=== PATIENT | male | born 1960 | race Two or more races ===

== ENCOUNTER 2017-01-21 03:10 | Inpatient (IN) | payer MEDICARE, OTHER ==
[2017-01-21] MEDS ORDERED: cefTRIAXone 1 GM in Sodium Chloride 0.9% 50 ML IV ONE (04:15)
[2017-01-21 04:18] VITALS: BP 136/81
--- NOTE | 2017-01-21 09:14 | History and Physical ---
History of Present Illness - HPI Chief Complaint: Fever and body pain HPI: Patient refer that x 3 days he has having fever, shaking, felling tired, reazon why he went to ER [facility]. There an CXR was done and Dx of Pneumonia was done. He was transferred to this hospital to continue treatment. Vital Signs: Last Vital Signs Temp 99.7 F 01/21/17 08:00 Pulse 79 01/21/17 08:00 Resp 148 01/21/17 08:00 BP 177/82 01/21/17 08:00 Pulse Ox 100 01/21/17 08:00 Past Medical History Cardiovascular: Report: HTN Pulmonary: Report: No Pertinent Hx GLASS BENDER: Report: No Pertinent Hx GI: Report: No Pertinent Hx Psych: Report: No Pertinent Hx Musculoskeletal: Report: No Pertinent Hx Infectious Disease: Report: No Pertinent Hx Renal/: Report: Chronic Renal Insuff, Other (Patient in HD 3 times a week) Endocrine: Report: Diabetes Dermatology: Report: No Pertinent Hx - Past Surgical History Past Surgical History: No pertinent Hx Family Medical History - Family Member Mother Ethnicity: Living Status: Still Living Hx Family Hypertension: Yes Social History Smoke: No Alcohol: None Drugs: None Lives: With Family Domestic Violence: Negative Health Maintenance Health Maintenance: Cholesterol - Allergies Allergies/Adverse Reactions: Allergies Allergy/AdvReac Type Severity Reaction Status Date / Time No Known Allergies Allergy Verified 01/21/17 04:05 Review of Systems - Review of Systems Constitutional: Report: Fever, Chills, Sweats, Weakness Eyes: Report: No Significant ENT: Report: No Significant Respiratory: Report: Cough, Dry Cardiovascular: Report: No Significant Gastrointestinal: Report: No Significant Genitourinary: Report: No Significant Musculoskeletal: Report: No Significant Skin: Report: No Significant Neurological: Report: Weakness Physical Exam - Physical Exam HEENT: Report: Ears Nose Throat within normal limits Neck: Report: Within normal limits Cardiovascular Systems: Report: Regular, Rate and Rhythm Respiratory: Report: Rhonchi Abdomen: Report: Non-tender to palpation Back: Report: Inspection of back is within normal limits. Extremities: Report: Non-tender to palpation. Skin: Report: Warm, Dry Neuro/Psych: Report: No motor deficit - Assessment Assessment: Patient is awake, alert, calm, shaking. Patient refer body pain and fever. According to information received from [facility] CXR showed PNA. - Plan Plan: Patient in ceftriaxone, Labs and CXR are requested, consult with nephro done. family Patient stated that they going to give us the meds patient is taking, no information at this moment.
[2017-01-21 09:45] LABS: % BASOPHILS 0.6 % (0.0-2.0); % EOSINOPHILS 0.2 % (0.0-5.0); % LYMPHOCYTES 6.7 % (20.0-50.0); % MONOCYTES 9.2 % (2.0-10.0); % NEUTROPHILS 83.3 % (40.0-80.0); HEMATOCRIT 34.8 % (39.0-49.0); HEMOGLOBIN 11.8 gm/dL (13.2-17.3); MEAN CELL VOLUME 95.9 fl (80-99); MEAN CORPUSCULAR HEMOGLOBIN 32.5 pg (26.0-30.0); MEAN CORPUSCULAR HGB CONC 33.9 pg (28.0-36.0); MEAN PLATELET VOLUME 8.7 fl; NEUTROPHILE ABSOLUTE 4.4 Th/cmm (1.8-8.0); PLATELET COUNT 120 Th/cmm (150-400); RED BLOOD COUNT 3.63 Mil/cmm (4.30-5.70); RED CELL DISTRIBUTION WIDTH 14.3 % (11.5-20.0); WHITE BLOOD COUNT 5.3 Th/cmm (4.8-10.8)
[2017-01-21 09:57] LABS: ALB/GLOB RATIO 1.4 (1.0-1.8); ANION GAP 12.9 (7.0-16.0); BILIRUBIN,TOTAL 0.5 mg/dL (0.3-1.0); CALCIUM SERUM 9.1 mg/dL (8.6-10.3); CARBON DIOXIDE 26.5 mEq/L (21.0-31.0); POTASSIUM SERUM 5.4 mEq/L (3.5-5.1)
[2017-01-21 10:14] LABS: CREATININE - SERUM 8.5 mg/dL (0.7-1.3)
--- NOTE | 2017-01-21 10:55 | Diagnostic Imaging Report ---
Portable chest x-ray History: Cough Allowing for portable technique the heart size is normal. Atherosclerotic calcification seen within the aortic arch. No focal pulmonary parenchymal processes. No hilar or mediastinal abnormalities. Degenerative changes seen to the spine. Impression: 1. No acute abnormalities 2. Atherosclerotic vascular changes
--- NOTE | 2017-01-21 13:59 | Consultation ---
Consult Note - Consult Note Service Date: 01/21/17 Consult Note: PHYSICIAN Consultation Note: Date of Admission: 01/21/17 Purpose of Consultation: Management of hemodialysis Chief Complaint: Fever/chills History of Present Illness: 56-year-old male with past medical history end-stage renal disease on hemodialysis was transferred from [place] emergency room to [facility] for further management. 2 days prior to admission, patient developed fever/chills. This was associated with nausea and vomiting, generalized myalgias and occasional cough. A few hours prior to admission, patient continued to have chills and myalgias during his dialysis treatment. Thus he proceeded to [place] emergency room. Temperature @ the emergency room was 102. WBC was 9.9 and potassium of 5.7. He received 10 U regular insulin with 1 amp of D50. Chest x-ray still pending. He was then transferred to [facility] for further care and antibiotics. Past medical history: ESRD on hemodialysis Essential hypertension with CKD Type 2 diabetes mellitus Diagnoses TYPE 2 DIABETES MELLITUS WITHOUT COMPLICATIONS (01/21/17) HYP CHR KIDNEY DISEASE W STAGE 5 CHR KIDNEY DISEASE OR ESRD (01/21/17) PNEUMONIA, UNSPECIFIED ORGANISM (01/21/17) END STAGE RENAL DISEASE (01/21/17) FEVER, UNSPECIFIED (01/21/17) DEPENDENCE ON RENAL DIALYSIS (01/21/17) Allergies Allergy/AdvReac Type Severity Reaction Status Date / Time No Known Allergies Allergy Verified 01/21/17 04:05 Vital Signs Temp 99.1 F 01/21/17 11:59 Pulse 76 01/21/17 11:59 Resp 18 01/21/17 12:00 BP 136/78 01/21/17 11:59 Pulse Ox 99 01/21/17 11:59 Intake & Output 01/20/17 01/21/17 01/21/17 18:59 06:59 18:59 Weight (lbs) 80.739 kg Other: Stool Characteristics Soft Soft Laboratory Results - last 24 hr 01/21/17 01/21/17 09:30 09:30 WBC 5.3 RBC 3.63 L Hgb 11.8 L Hct 34.8 L MCV 95.9 MCH 32.5 H MCHC Differential 33.9 RDW 14.3 Plt Count 120 L MPV 8.7 Neutrophils % 83.3 H Lymphocytes % 6.7 L Monocytes % 9.2 Eosinophils % 0.2 Basophils % 0.6 Sodium 132 L Potassium 5.4 H Chloride 98 Carbon Dioxide 26.5 Anion Gap 12.9 BUN 51 H Creatinine 8.5 H* Est GFR ( Amer) 8.5 Est GFR (Non-Af Amer) 7.0 BUN/Creatinine Ratio 6.0 Glucose 178 H Calcium 9.1 Total Bilirubin 0.5 AST 27 ALT 30 Alkaline Phosphatase 56 Total Protein 6.7 Albumin 3.9 L Globulin 2.8 Albumin/Globulin Ratio 1.4 Home Medication Medication Instructions Recorded Type Aspirin [Aspirin Chewable] 81 mg PO DAILY 01/21/17 History Atorvastatin Calcium [Lipitor] 40 mg PO DAILY 01/21/17 History Calcium Acetate [Phoslo] 2,708 mg PO TID 01/21/17 History Carvedilol [Coreg] 25 mg PO BID 01/21/17 History Diphenoxylate HCl/Atropine 1 tab PO PRN PRN 01/21/17 History [Diphenoxylate-Atrop 2.5-0.025] Finasteride [Proscar] 5 mg PO DAILY 01/21/17 History Furosemide [Lasix] 80 mg PO DAILY 01/21/17 History Gabapentin [Neurontin*] 300 mg PO DAILY 01/21/17 History Glimepiride 1 mg PO DAILY 01/21/17 History Hydralazine [Apresoline*] 50 mg PO TID 01/21/17 History Vit B Cmplx 3/FA/Vit C/Biotin 1 tab PO DAILY 01/21/17 History [Molly-Janet Rx Tablet] Current Medications Generic Name Dose Route Start Last Admin Trade Name Jeanq PRN Reason Stop Dose Admin Acetaminophen 650 mg 01/21/17 09:04 01/21/17 09:37 Tylenol PO 03/22/17 09:03 650 mg Q6H PRN Administration Pain or Fever >101 Amlodipine Besylate 5 mg 01/21/17 09:30 01/21/17 09:37 Norvasc PO 03/22/17 09:29 5 mg DAILY [facility] Administration Ceftriaxone Sodium 1 gm/ 50 mls @ 100 mls/hr 01/22/17 09:00 Sodium Chloride IV 03/23/17 08:59 Q24HR E[facility] Ondansetron HCl 4 mg 01/21/17 04:16 Zofran IV 03/22/17 04:15 Q6H PRN Nausea / Vomiting Tramadol HCl 50 mg 01/21/17 11:13 Ultram PO 03/22/17 11:12 Q6HR PRN GENERALIZED PAIN Review of Systems: A 12 point ROS was reviewed with the pertinent positive and negatives noted in the HPI. Social History Smoking Status Never smoker Family Medical History Family Medical History Start: 01/21/17 04: 01 Freq: ONCE Status: Active Document 01/21/17 04:01 LSUN (Rec: 01/21/17 06:08 [id number] [id number]) Family Medical History Mother Ethnicity Living Status Still Living Hx Family Hypertension Yes Physical Exam: General: Alert and Oriented x3, chills HEENT: EOMI Bilaterally, PERRLA Bilaterally, Head is normocephalic, atraumatic on inspection. Cardio: +S1/S2 Auscultated, RRR, no murmurs/rubs/gallops noted Respiratory: few rhonchi Abdominal: Soft, Nondistended, Nontender to palpation x 4 quadrants Genital/Urinary: WNL Extremities: No Edema noted in the lower extremities; right AVF clean, no signs of infection Neurological: Cranial Nerves II-XII intact bilaterally, No Focal Deficits noted. Assessment/Plan: Fever/chills secondary to community-acquired pneumonia, right AV fistula infection which I doubt Essential hypertension with CAD Type 2 diabetes mellitus with CKD ESRD on hemodialysis Plan: Hemodialysis in a.m. Follow-up cultures Follow-up electrolytes Vancomycin 1 Antipyretics Romel, Pantera Lee [id number]
[2017-01-22 05:50] LABS: HEMATOCRIT 32.7 % (39.0-49.0); HEMOGLOBIN 11.3 gm/dL (13.2-17.3); MEAN CELL VOLUME 94.9 fl (80-99); MEAN CORPUSCULAR HEMOGLOBIN 32.9 pg (26.0-30.0); MEAN CORPUSCULAR HGB CONC 34.7 pg (28.0-36.0); MEAN PLATELET VOLUME 9.1 fl; PLATELET COUNT 120 Th/cmm (150-400); RED BLOOD COUNT 3.45 Mil/cmm (4.30-5.70); RED CELL DISTRIBUTION WIDTH 13.9 % (11.5-20.0); WHITE BLOOD COUNT 4.8 Th/cmm (4.8-10.8)
[2017-01-22 06:14] LABS: ALB/GLOB RATIO 1.3 (1.0-1.8); ANION GAP 10.8 (7.0-16.0); BILIRUBIN,TOTAL 0.4 mg/dL (0.3-1.0); BUN/CREATININE RATIO 6.4; CARBON DIOXIDE 27.3 mEq/L (21.0-31.0)
[2017-01-22 06:16] LABS: POTASSIUM SERUM 6.1 mEq/L (3.5-5.1)
[2017-01-22 06:17] LABS: CREATININE - SERUM 10.4 mg/dL (0.7-1.3)
[2017-01-22 06:30] LABS: BAND NEUTROPHILE 3 % (0-10); NEUTROPHILS 68 % (40-80); PLATELET ESTIMATE ADEQUATE (NORMAL); TOTAL CELLS COUNTED 100
--- NOTE | 2017-01-22 09:00 | General Progress Note ---
Subjective - Review of Systems Service Date: 01/22/17 Subjective: I feel better Objective - Results Result Diagrams: 01/22/17 05:35 01/22/17 05:35 Recent Labs: Laboratory Last Values WBC 4.8 Th/cmm (4.8-10.8) 01/22/17 05:35 RBC 3.45 Mil/cmm (4.30-5.70) L 01/22/17 05:35 Hgb 11.3 gm/dL (13.2-17.3) L 01/22/17 05:35 Hct 32.7 % (39.0-49.0) L 01/22/17 05:35 MCV 94.9 fl (80-99) 01/22/17 05:35 MCH 32.9 pg (26.0-30.0) H 01/22/17 05:35 MCHC Differential 34.7 pg (28.0-36.0) 01/22/17 05:35 RDW 13.9 % (11.5-20.0) 01/22/17 05:35 Plt Count 120 Th/cmm (150-400) L 01/22/17 05:35 MPV 9.1 fl 01/22/17 05:35 Neutrophils % 83.3 % (40.0-80.0) H 01/21/17 09:30 Band Neutrophils % 3 % (0-10) 01/22/17 05:35 Lymphocytes % 6.7 % (20.0-50.0) L 01/21/17 09:30 Monocytes % 9.2 % (2.0-10.0) 01/21/17 09:30 Eosinophils % 0.2 % (0.0-5.0) 01/21/17 09:30 Basophils % 0.6 % (0.0-2.0) 01/21/17 09:30 Neutrophils (Manual) 68 % (40-80) 01/22/17 05:35 Lymphocytes 18 % (20-50) L 01/22/17 05:35 Monocytes 11 % (2-10) H 01/22/17 05:35 Platelet Estimate ADEQUATE (NORMAL) 01/22/17 05:35 Sodium 131 mEq/L (136-145) L 01/22/17 05:35 Potassium 6.1 mEq/L (3.5-5.1) H* 01/22/17 05:35 Chloride 99 mEq/L (98-107) 01/22/17 05:35 Carbon Dioxide 27.3 mEq/L (21.0-31.0) 01/22/17 05:35 Anion Gap 10.8 (7.0-16.0) 01/22/17 05:35 BUN 67 mg/dL (7-25) H 01/22/17 05:35 Creatinine 10.4 mg/dL (0.7-1.3) H* 01/22/17 05:35 Est GFR ( Amer) 6.7 ml/min (>90) 01/22/17 05:35 Est GFR (Non-Af Amer) 5.5 ml/min 01/22/17 05:35 BUN/Creatinine Ratio 6.4 01/22/17 05:35 Glucose 127 mg/dL (70-105) H 01/22/17 05:35 POC Glucose 169 MG/DL (70 - 105) H 01/21/17 15:22 Hemoglobin A1c % 4.8 % (4.0-6.0) 01/22/17 05:35 Calcium 9.0 mg/dL (8.6-10.3) 01/22/17 05:35 Total Bilirubin 0.4 mg/dL (0.3-1.0) 01/22/17 05:35 AST 21 U/L (13-39) 01/22/17 05:35 ALT 27 U/L (7-52) 01/22/17 05:35 Alkaline Phosphatase 50 U/L (34-104) 01/22/17 05:35 Total Protein 6.1 gm/dL (6.0-8.3) 01/22/17 05:35 Albumin 3.4 gm/dL (4.2-5.5) L 01/22/17 05:35 Globulin 2.7 gm/dL 01/22/17 05:35 Albumin/Globulin Ratio 1.3 (1.0-1.8) 01/22/17 05:35 - Physical Exam Vitals and I&O: Vital Signs Temp 97.7 F 01/22/17 04:00 Pulse 85 01/22/17 04:00 Resp 20 01/22/17 04:00 BP 106/66 01/22/17 04:00 Pulse Ox 100 01/22/17 04:00 Intake & Output 01/21/17 01/22/17 01/22/17 18:59 06:59 18:59 Weight (lbs) 80.739 kg Other: # Voids 0 # Bowel Movements 0 Stool Characteristics Soft Soft Active Medications: Current Medications Acetaminophen (Tylenol) 650 mg PO Q6H PRN PRN Reason: Pain or Fever >101 Stop: 03/22/17 09:03 Last Admin: 01/21/17 23:20 Dose: 650 mg Aspirin (Aspirin Chewable) 81 mg PO DAILY [facility] Stop: 03/23/17 08:59 Calcium Acetate (Phoslo) 2,708 mg PO TID [facility] Stop: 03/23/17 08:59 Finasteride (Proscar) 5 mg PO DAILY [facility] PRN Reason: Protocol Stop: 03/23/17 08:59 Gabapentin (Neurontin) mg PO DAILY [facility] Stop: 03/23/17 08:59 Hydralazine HCl (Apresoline) mg PO TID [facility] Stop: 03/23/17 08:59 Ceftriaxone Sodium 1 gm/ (Sodium Chloride) 50 mls @ 100 mls/hr IV Q24HR [facility] Stop: 03/23/17 08:59 Insulin Aspart (Novolog Insulin Sliding Scale) 0 units SUBQ ACHS [facility] PRN Reason: Protocol Stop: 03/23/17 11:29 Miscellaneous (Atorvastatin Calcium [Lipitor]) 40 mg PO DAILY [facility] Stop: 03/23/17 08:59 Miscellaneous (Carvedilol [Coreg]) 25 mg PO BID [facility] Stop: 03/23/17 08:59 Miscellaneous (Vit B Cmplx 3/Fa/Vit C/Biotin [Molly-Janet Rx Tablet]) 1 tab PO DAILY [facility] Stop: 03/23/17 08:59 Ondansetron HCl (Zofran) 4 mg IV Q6H PRN PRN Reason: Nausea / Vomiting Stop: 03/22/17 04:15 Tramadol HCl (Ultram) 50 mg PO Q6HR PRN PRN Reason: GENERALIZED PAIN Stop: 03/22/17 11:12 General: Alert, Oriented x3, Cooperative, No acute distress HEENT: Atraumatic Neck: Supple Cardiovascular: Regular rate Lungs: Clear to auscultation Abdomen: Bowel sounds, Soft Extremities: Other (No edema) Neurological: Normal gait Skin: Other (warm and dry) Psych/Mental Status: Mental status NL Assessment/Plan - Assessment Assessment: Patient is awake, alert, calm, shaking. Patient refer felling better. Patient is not shaking anymore, K is high. - Plan Plan: Patient in ceftriaxone, and vanco, HD will be done today Kayaxelate is given. Will continue to monitor.
[2017-01-22] MEDS: cefTRIAXone 1 GM in 0.9% NS 50 ML IV SCH (09:54)
[2017-01-22] MEDS: Vitamin B Complex w/Vitamin C Tab PO SCH (09:57)
[2017-01-22] MEDS: Aspirin 81mg Chewable Tab PO SCH (09:58)
[2017-01-22] MEDS: INSULIN ASPART SLIDING SCALE 100 UNITS/ML UNIT SUBQ SCH ×3 (13:25→21:31)
--- NOTE | 2017-01-22 14:15 | General Progress Note ---
Subjective - Review of Systems Service Date: 01/22/17 Subjective: Alert, slightly anxious Objective - Results Result Diagrams: 01/22/17 05:35 01/22/17 05:35 Recent Labs: Laboratory Last Values WBC 4.8 Th/cmm (4.8-10.8) 01/22/17 05:35 RBC 3.45 Mil/cmm (4.30-5.70) L 01/22/17 05:35 Hgb 11.3 gm/dL (13.2-17.3) L 01/22/17 05:35 Hct 32.7 % (39.0-49.0) L 01/22/17 05:35 MCV 94.9 fl (80-99) 01/22/17 05:35 MCH 32.9 pg (26.0-30.0) H 01/22/17 05:35 MCHC Differential 34.7 pg (28.0-36.0) 01/22/17 05:35 RDW 13.9 % (11.5-20.0) 01/22/17 05:35 Plt Count 120 Th/cmm (150-400) L 01/22/17 05:35 MPV 9.1 fl 01/22/17 05:35 Neutrophils % 83.3 % (40.0-80.0) H 01/21/17 09:30 Band Neutrophils % 3 % (0-10) 01/22/17 05:35 Lymphocytes % 6.7 % (20.0-50.0) L 01/21/17 09:30 Monocytes % 9.2 % (2.0-10.0) 01/21/17 09:30 Eosinophils % 0.2 % (0.0-5.0) 01/21/17 09:30 Basophils % 0.6 % (0.0-2.0) 01/21/17 09:30 Neutrophils (Manual) 68 % (40-80) 01/22/17 05:35 Lymphocytes 18 % (20-50) L 01/22/17 05:35 Monocytes 11 % (2-10) H 01/22/17 05:35 Platelet Estimate ADEQUATE (NORMAL) 01/22/17 05:35 Sodium 131 mEq/L (136-145) L 01/22/17 05:35 Potassium 6.1 mEq/L (3.5-5.1) H* 01/22/17 05:35 Chloride 99 mEq/L (98-107) 01/22/17 05:35 Carbon Dioxide 27.3 mEq/L (21.0-31.0) 01/22/17 05:35 Anion Gap 10.8 (7.0-16.0) 01/22/17 05:35 BUN 67 mg/dL (7-25) H 01/22/17 05:35 Creatinine 10.4 mg/dL (0.7-1.3) H* 01/22/17 05:35 Est GFR ( Amer) 6.7 ml/min (>90) 01/22/17 05:35 Est GFR (Non-Af Amer) 5.5 ml/min 01/22/17 05:35 BUN/Creatinine Ratio 6.4 01/22/17 05:35 Glucose 127 mg/dL (70-105) H 01/22/17 05:35 POC Glucose 152 MG/DL (70 - 105) H 01/22/17 13:04 Hemoglobin A1c % 4.8 % (4.0-6.0) 01/22/17 05:35 Calcium 9.0 mg/dL (8.6-10.3) 01/22/17 05:35 Total Bilirubin 0.4 mg/dL (0.3-1.0) 01/22/17 05:35 AST 21 U/L (13-39) 01/22/17 05:35 ALT 27 U/L (7-52) 01/22/17 05:35 Alkaline Phosphatase 50 U/L (34-104) 01/22/17 05:35 Total Protein 6.1 gm/dL (6.0-8.3) 01/22/17 05:35 Albumin 3.4 gm/dL (4.2-5.5) L 01/22/17 05:35 Globulin 2.7 gm/dL 01/22/17 05:35 Albumin/Globulin Ratio 1.3 (1.0-1.8) 01/22/17 05:35 - Physical Exam Vitals and I&O: Vital Signs Temp 97.7 F 01/22/17 04:00 Pulse 112 01/22/17 09:57 Resp 20 01/22/17 04:00 BP 128/75 01/22/17 09:57 Pulse Ox 100 01/22/17 04:00 Intake & Output 01/21/17 01/22/17 01/22/17 18:59 06:59 18:59 Weight (lbs) 80.739 kg Other: # Voids 0 # Bowel Movements 0 Stool Characteristics Soft Soft Active Medications: Current Medications Acetaminophen (Tylenol) 650 mg PO Q6H PRN PRN Reason: Pain or Fever >101 Stop: 03/22/17 09:03 Last Admin: 01/21/17 23:20 Dose: 650 mg Aspirin (Aspirin Chewable) 81 mg PO DAILY [facility] Stop: 03/23/17 08:59 Last Admin: 01/22/17 09:58 Dose: 81 mg Atorvastatin Calcium (Lipitor) 40 mg PO DAILY [facility] Stop: 03/23/17 08:59 Last Admin: 01/22/17 09:56 Dose: 40 mg Calcium Acetate (Phoslo) 2,668 mg PO TIDWM [facility] Stop: 03/23/17 11:59 Carvedilol (Coreg) 25 mg PO BID [facility] Stop: 03/23/17 08:59 Last Admin: 01/22/17 09:57 Dose: 25 mg Finasteride (Proscar) 5 mg PO DAILY [facility] PRN Reason: Protocol Stop: 03/23/17 08:59 Last Admin: 01/22/17 09:56 Dose: 5 mg Gabapentin (Neurontin) 300 mg PO DAILY [facility] Stop: 03/23/17 08:59 Last Admin: 01/22/17 09:57 Dose: 300 mg Hydralazine HCl (Apresoline) 50 mg PO TID [facility] Stop: 03/23/17 08:59 Ceftriaxone Sodium 1 gm/ (Sodium Chloride) 50 mls @ 100 mls/hr IV Q24HR [facility] Stop: 03/23/17 08:59 Last Admin: 01/22/17 09:54 Dose: 100 mls/hr Insulin Aspart (Novolog Insulin Sliding Scale) 0 units SUBQ ACHS [facility] PRN Reason: Protocol Stop: 03/23/17 11:29 Last Admin: 01/22/17 13:25 Dose: 3 units Ondansetron HCl (Zofran) 4 mg IV Q6H PRN PRN Reason: Nausea / Vomiting Stop: 03/22/17 04:15 Tramadol HCl (Ultram) 50 mg PO Q6HR PRN PRN Reason: GENERALIZED PAIN Stop: 03/22/17 11:12 Vitamin B Complex/Vit C/Folic Acid (Vitamin B Complex W/Vitamin C) 1 tab PO DAILY [facility] Stop: 03/23/17 08:59 Last Admin: 01/22/17 09:57 Dose: 1 tab General: Alert, Oriented x3, Cooperative, No acute distress HEENT: Atraumatic, PERRLA, EOMI, Mucous membr. moist/pink Neck: Supple, +2 carotid pulse wo bruit Cardiovascular: Regular rate, Normal S1, Normal S2 Lungs: Clear to auscultation, Normal air movement Abdomen: Bowel sounds, Soft Extremities: Other (No edema), no Edema Neurological: Normal gait Skin: Other (warm and dry), no Rash Psych/Mental Status: Mental status NL, Mood NL Assessment/Plan - Assessment Assessment: Community acquired pneumonia Essential hypertension COPD Type II DM with CPD ESRD on hemodialysis - Plan Plan: Lab - Result Diagrams 01/22/17 05:35 01/22/17 05:35 Current Medications Acetaminophen (Tylenol) 650 mg PO Q6H PRN PRN Reason: Pain or Fever >101 Stop: 03/22/17 09:03 Last Admin: 01/21/17 23:20 Dose: 650 mg Aspirin (Aspirin Chewable) 81 mg PO DAILY [facility] Stop: 03/23/17 08:59 Last Admin: 01/22/17 09:58 Dose: 81 mg Atorvastatin Calcium (Lipitor) 40 mg PO DAILY [facility] Stop: 03/23/17 08:59 Last Admin: 01/22/17 09:56 Dose: 40 mg Calcium Acetate (Phoslo) 2,668 mg PO TIDWM [facility] Stop: 03/23/17 11:59 Carvedilol (Coreg) 25 mg PO BID [facility] Stop: 03/23/17 08:59 Last Admin: 01/22/17 09:57 Dose: 25 mg Finasteride (Proscar) 5 mg PO DAILY [facility] PRN Reason: Protocol Stop: 03/23/17 08:59 Last Admin: 01/22/17 09:56 Dose: 5 mg Gabapentin (Neurontin) 300 mg PO DAILY [facility] Stop: 03/23/17 08:59 Last Admin: 01/22/17 09:57 Dose: 300 mg Hydralazine HCl (Apresoline) 50 mg PO TID [facility] Stop: 03/23/17 08:59 Ceftriaxone Sodium 1 gm/ (Sodium Chloride) 50 mls @ 100 mls/hr IV Q24HR [facility] Stop: 03/23/17 08:59 Last Admin: 01/22/17 09:54 Dose: 100 mls/hr Insulin Aspart (Novolog Insulin Sliding Scale) 0 units SUBQ ACHS [facility] PRN Reason: Protocol Stop: 03/23/17 11:29 Last Admin: 01/22/17 13:25 Dose: 3 units Ondansetron HCl (Zofran) 4 mg IV Q6H PRN PRN Reason: Nausea / Vomiting Stop: 03/22/17 04:15 Tramadol HCl (Ultram) 50 mg PO Q6HR PRN PRN Reason: GENERALIZED PAIN Stop: 03/22/17 11:12 Vitamin B Complex/Vit C/Folic Acid (Vitamin B Complex W/Vitamin C) 1 tab PO DAILY [facility] Stop: 03/23/17 08:59 Last Admin: 01/22/17 09:57 Dose: 1 tab Currently being dialyzed and tolerating it well Utilizing one K bath for potassium 6.1 Continue ceftriaxone White count stable at 4.8 Follow-up electrolytes
--- NOTE | 2017-01-22 14:40 | Consultation ---
Consult Note - Consult Note Service Date: 01/22/17 Referring Physician: Bandar Booth Consult Note: PHYSICIAN Consultation Note: Date of Admission: 01/21/17 Purpose of Consultation: Shortness of breath Chief Complaint: Shortness of breath feeling weak diarrhea and low-grade fever History of Present Illness: Patient GRETA BEAVERS was admitted to [facility] Telemetry with PNEUMONIA- HYPERKALEMIA. Patient transferred from [facility] Past Medical History: Diagnoses TYPE 2 DIABETES MELLITUS WITHOUT COMPLICATIONS (01/21/17) HYP CHR KIDNEY DISEASE W STAGE 5 CHR KIDNEY DISEASE OR ESRD (01/21/17) PNEUMONIA, UNSPECIFIED ORGANISM (01/21/17) END STAGE RENAL DISEASE (01/21/17) FEVER, UNSPECIFIED (01/21/17) DEPENDENCE ON RENAL DIALYSIS (01/21/17) Allergies Allergy/AdvReac Type Severity Reaction Status Date / Time No Known Allergies Allergy Verified 01/21/17 04:05 Vital Signs Temp 97.7 F 01/22/17 04:00 Pulse 112 01/22/17 09:57 Resp 20 01/22/17 04:00 BP 128/75 01/22/17 09:57 Pulse Ox 100 01/22/17 04:00 Intake & Output 01/21/17 01/22/17 01/22/17 18:59 06:59 18:59 Weight (lbs) 80.739 kg Other: # Voids 0 # Bowel Movements 0 Stool Characteristics Soft Soft Laboratory Results - last 24 hr 01/21/17 01/22/17 01/22/17 15:22 05:35 05:35 WBC 4.8 RBC 3.45 L Hgb 11.3 L Hct 32.7 L MCV 94.9 MCH 32.9 H MCHC Differential 34.7 RDW 13.9 Plt Count 120 L MPV 9.1 Band Neutrophils % 3 Neutrophils (Manual) 68 Lymphocytes 18 L Monocytes 11 H Platelet Estimate ADEQUATE Sodium 131 L Potassium 6.1 H* Chloride 99 Carbon Dioxide 27.3 Anion Gap 10.8 BUN 67 H Creatinine 10.4 H* Est GFR ( Amer) 6.7 Est GFR (Non-Af Amer) 5.5 BUN/Creatinine Ratio 6.4 Glucose 127 H POC Glucose 169 H Hemoglobin A1c % Calcium 9.0 Total Bilirubin 0.4 AST 21 ALT 27 Alkaline Phosphatase 50 Total Protein 6.1 Albumin 3.4 L Globulin 2.7 Albumin/Globulin Ratio 1.3 01/22/17 01/22/17 01/22/17 05:35 08:47 13:04 WBC RBC Hgb Hct MCV MCH MCHC Differential RDW Plt Count MPV Band Neutrophils % Neutrophils (Manual) Lymphocytes Monocytes Platelet Estimate Sodium Potassium Chloride Carbon Dioxide Anion Gap BUN Creatinine Est GFR ( Amer) Est GFR (Non-Af Amer) BUN/Creatinine Ratio Glucose POC Glucose 122 H 152 H Hemoglobin A1c % 4.8 Calcium Total Bilirubin AST ALT Alkaline Phosphatase Total Protein Albumin Globulin Albumin/Globulin Ratio Home Medication Medication Instructions Recorded Type Aspirin [Aspirin Chewable] 81 mg PO DAILY 01/21/17 History Atorvastatin Calcium [Lipitor] 40 mg PO DAILY 01/21/17 History Calcium Acetate [Phoslo] 2,708 mg PO TID 01/21/17 History Carvedilol [Coreg] 25 mg PO BID 01/21/17 History Diphenoxylate HCl/Atropine 1 tab PO PRN PRN 01/21/17 History [Diphenoxylate-Atrop 2.5-0.025] Finasteride [Proscar] 5 mg PO DAILY 01/21/17 History Furosemide [Lasix] 80 mg PO DAILY 01/21/17 History Gabapentin [Neurontin*] 300 mg PO DAILY 01/21/17 History Glimepiride 1 mg PO DAILY 01/21/17 History Hydralazine [Apresoline*] 50 mg PO TID 01/21/17 History Vit B Cmplx 3/FA/Vit C/Biotin 1 tab PO DAILY 01/21/17 History [Molly-Janet Rx Tablet] Current Medications Generic Name Dose Route Start Last Admin Trade Name Jeanq PRN Reason Stop Dose Admin Acetaminophen 650 mg 01/21/17 09:04 01/21/17 23:20 Tylenol PO 03/22/17 09:03 650 mg Q6H PRN Administration Pain or Fever >101 Aspirin 81 mg 01/22/17 09:00 01/22/17 09:58 Aspirin Chewable PO 03/23/17 08:59 81 mg DAILY EDNA Administration Atorvastatin Calcium 40 mg 01/22/17 09:00 01/22/17 09:56 Lipitor PO 03/23/17 08:59 40 mg DAILY EDNA Administration Calcium Acetate 2,668 mg 01/22/17 12:00 Phoslo PO 03/23/17 11:59 TIDWM EDNA Carvedilol 25 mg 01/22/17 09:00 01/22/17 09:57 Coreg PO 03/23/17 08:59 25 mg BID EDNA Administration Finasteride 5 mg 01/22/17 09:00 01/22/17 09:56 Proscar PO 03/23/17 08:59 5 mg DAILY EDNA Administration Protocol Gabapentin 300 mg 01/22/17 09:00 01/22/17 09:57 Neurontin PO 03/23/17 08:59 300 mg DAILY EDNA Administration Hydralazine HCl 50 mg 01/22/17 09:00 Apresoline PO 03/23/17 08:59 TID EDNA Ceftriaxone Sodium 1 gm/ 50 mls @ 100 mls/hr 01/22/17 09:00 01/22/17 09:54 Sodium Chloride IV 03/23/17 08:59 100 mls/hr Q24HR EDNA Administration Insulin Aspart 0 units 01/22/17 11:30 01/22/17 13:25 Novolog Insulin Sliding Scale SUBQ 03/23/17 11:29 3 units ACHS EDNA Administration Protocol Ondansetron HCl 4 mg 01/21/17 04:16 Zofran IV 03/22/17 04:15 Q6H PRN Nausea / Vomiting Tramadol HCl 50 mg 01/21/17 11:13 Ultram PO 03/22/17 11:12 Q6HR PRN GENERALIZED PAIN Vitamin B Complex/Vit C/Folic Acid 1 tab 01/22/17 09:00 01/22/17 09:57 Vitamin B Complex W/Vitamin C PO 03/23/17 08:59 1 tab DAILY EDNA Administration Review of Systems: A 12 point ROS was reviewed with the pertinent positive and negatives noted in the HPI. Social History Smoking Status Never smoker Family Medical History Family Medical History Start: 01/21/17 04: 01 Freq: ONCE Status: Active Document 01/21/17 04:01 LSUN (Rec: 01/21/17 06:08 [id number]) Family Medical History Mother Ethnicity Living Status Still Living Hx Family Hypertension Yes Physical Exam: General: Alert and Oriented x3, No Acute Distress HEENT: EOMI Bilaterally, PERRLA Bilaterally, Head is normocephalic, atraumatic on inspection. Card S1-S2 no S3 soft S4 Respiratory: Occasional wheeze and rales Abdominal: Soft, Nondistended, Nontender to palpation x 4 quadrants Genital/Urinary: Extremities: No Edema noted in the lower extremities Neurological: Cranial Nerves II-XII intact bilaterally, Gait Steady, No Focal Deficits noted. Assessment/Plan: Pneumonia Hypertension Hyperlipidemia Diabetes mellitus type 2 BPH Hyperkalemia And deficiency anemia Diabetes CKD stage V end-stage renal disease on dialysis And deficiency anemia Patient to have dialysis with ultrafiltration get an echocardiogram for left ventricular function continue IV antibiotics Romel, Gustabo Murphy. 01/22/096326
[2017-01-23] MEDS: INSULIN ASPART SLIDING SCALE 100 UNITS/ML UNIT SUBQ SCH ×4 (06:47→21:05)
[2017-01-23 06:50] LABS: HEMATOCRIT 32.5 % (39.0-49.0); HEMOGLOBIN 11.4 gm/dL (13.2-17.3); MEAN CELL VOLUME 94.6 fl (80-99); MEAN CORPUSCULAR HGB CONC 34.9 pg (28.0-36.0); MEAN PLATELET VOLUME 10.2 fl; PLATELET COUNT 139 Th/cmm (150-400); RED BLOOD COUNT 3.44 Mil/cmm (4.30-5.70); RED CELL DISTRIBUTION WIDTH 14.2 % (11.5-20.0); WHITE BLOOD COUNT 4.6 Th/cmm (4.8-10.8)
[2017-01-23 07:19] LABS: ALB/GLOB RATIO 1.1 (1.0-1.8); ANION GAP 11.4 (7.0-16.0); BILIRUBIN,TOTAL 0.4 mg/dL (0.3-1.0); BUN/CREATININE RATIO 5.4; CALCIUM SERUM 8.8 mg/dL (8.6-10.3); CARBON DIOXIDE 31.6 mEq/L (21.0-31.0)
[2017-01-23 07:38] LABS: CREATININE - SERUM 7.9 mg/dL (0.7-1.3)
[2017-01-23 08:31] LABS: BAND NEUTROPHILE 3 % (0-10); EOSINOPHIL 3 % (0-5); NEUTROPHILS 51 % (40-80); TOTAL CELLS COUNTED 100
[2017-01-23 08:32] LABS: PLATELET ESTIMATE ADEQUATE (NORMAL)
[2017-01-23] MEDS: Vitamin B Complex w/Vitamin C Tab PO SCH (12:01)
[2017-01-23] MEDS: Aspirin 81mg Chewable Tab PO SCH (12:02)
--- NOTE | 2017-01-23 13:47 | General Progress Note ---
Subjective - Review of Systems Service Date: 01/23/17 Subjective: I feel better Objective - Results Result Diagrams: 01/23/17 06:08 01/23/17 06:08 Recent Labs: Laboratory Last Values WBC 4.6 Th/cmm (4.8-10.8) L 01/23/17 06:08 RBC 3.44 Mil/cmm (4.30-5.70) L 01/23/17 06:08 Hgb 11.4 gm/dL (13.2-17.3) L 01/23/17 06:08 Hct 32.5 % (39.0-49.0) L 01/23/17 06:08 MCV 94.6 fl (80-99) 01/23/17 06:08 MCH 33.0 pg (26.0-30.0) H 01/23/17 06:08 MCHC Differential 34.9 pg (28.0-36.0) 01/23/17 06:08 RDW 14.2 % (11.5-20.0) 01/23/17 06:08 Plt Count 139 Th/cmm (150-400) L 01/23/17 06:08 MPV 10.2 fl 01/23/17 06:08 Neutrophils % 83.3 % (40.0-80.0) H 01/21/17 09:30 Band Neutrophils % 3 % (0-10) 01/23/17 06:08 Lymphocytes % 6.7 % (20.0-50.0) L 01/21/17 09:30 Monocytes % 9.2 % (2.0-10.0) 01/21/17 09:30 Eosinophils % 0.2 % (0.0-5.0) 01/21/17 09:30 Basophils % 0.6 % (0.0-2.0) 01/21/17 09:30 Neutrophils (Manual) 51 % (40-80) 01/23/17 06:08 Lymphocytes 24 % (20-50) 01/23/17 06:08 Monocytes 19 % (2-10) H 01/23/17 06:08 Eosinophils 3 % (0-5) 01/23/17 06:08 Platelet Estimate ADEQUATE (NORMAL) 01/23/17 06:08 Sodium 136 mEq/L (136-145) 01/23/17 06:08 Potassium 4.0 mEq/L (3.5-5.1) D 01/23/17 06:08 Chloride 97 mEq/L (98-107) L 01/23/17 06:08 Carbon Dioxide 31.6 mEq/L (21.0-31.0) H 01/23/17 06:08 Anion Gap 11.4 (7.0-16.0) 01/23/17 06:08 BUN 43 mg/dL (7-25) H 01/23/17 06:08 Creatinine 7.9 mg/dL (0.7-1.3) H* 01/23/17 06:08 Est GFR ( Amer) 9.2 ml/min (>90) 01/23/17 06:08 Est GFR (Non-Af Amer) 7.6 ml/min 01/23/17 06:08 BUN/Creatinine Ratio 5.4 01/23/17 06:08 Glucose 102 mg/dL (70-105) 01/23/17 06:08 POC Glucose 130 MG/DL (70 - 105) H 01/23/17 12:14 Hemoglobin A1c % 4.8 % (4.0-6.0) 01/22/17 05:35 Calcium 8.8 mg/dL (8.6-10.3) 01/23/17 06:08 Total Bilirubin 0.4 mg/dL (0.3-1.0) 01/23/17 06:08 AST 17 U/L (13-39) 01/23/17 06:08 ALT 23 U/L (7-52) 01/23/17 06:08 Alkaline Phosphatase 60 U/L (34-104) 01/23/17 06:08 B-Natriuretic Peptide 1040.0 pg/mL (5.0-100.0) H 01/23/17 06:08 Total Protein 6.2 gm/dL (6.0-8.3) 01/23/17 06:08 Albumin 3.3 gm/dL (4.2-5.5) L 01/23/17 06:08 Globulin 2.9 gm/dL 01/23/17 06:08 Albumin/Globulin Ratio 1.1 (1.0-1.8) 01/23/17 06:08 - Physical Exam Vitals and I&O: Vital Signs Temp 98 F 01/23/17 04:00 Pulse 96 01/23/17 12:04 Resp 18 01/23/17 04:00 BP 148/85 01/23/17 12:04 Pulse Ox 94 01/23/17 04:00 Intake & Output 01/22/17 01/23/17 01/23/17 18:59 06:59 18:59 Intake Total 400 200 Output Total 1999 Balance -1600 200 Weight (lbs) 77.111 kg 81.647 kg Intake: Oral 400 200 Output: Hemodialysis 2000 Other: # Voids 2 # Bowel Movements 1 Active Medications: Current Medications Acetaminophen (Tylenol) 650 mg PO Q6H PRN PRN Reason: Pain or Fever >101 Stop: 03/22/17 09:03 Last Admin: 01/21/17 23:20 Dose: 650 mg Aspirin (Aspirin Chewable) 81 mg PO DAILY [facility] Stop: 03/23/17 08:59 Last Admin: 01/23/17 12:02 Dose: 81 mg Atorvastatin Calcium (Lipitor) 40 mg PO DAILY [facility] Stop: 03/23/17 08:59 Last Admin: 01/23/17 12:01 Dose: 40 mg Calcium Acetate (Phoslo) 2,668 mg PO TIDWM [facility] Stop: 03/23/17 11:59 Last Admin: 01/23/17 11:59 Dose: 2,668 mg Carvedilol (Coreg) 25 mg PO BID [facility] Stop: 03/23/17 08:59 Last Admin: 01/23/17 12:04 Dose: 25 mg Finasteride (Proscar) 5 mg PO DAILY [facility] PRN Reason: Protocol Stop: 03/23/17 08:59 Last Admin: 01/23/17 12:00 Dose: 5 mg Gabapentin (Neurontin) 300 mg PO DAILY [facility] Stop: 03/23/17 08:59 Last Admin: 01/22/17 09:57 Dose: 300 mg Hydralazine HCl (Apresoline) 50 mg PO TID [facility] Stop: 03/23/17 08:59 Last Admin: 01/23/17 12:02 Dose: 50 mg Ceftriaxone Sodium 1 gm/ (Sodium Chloride) 50 mls @ 100 mls/hr IV Q24HR [facility] Stop: 03/23/17 08:59 Last Admin: 01/22/17 09:54 Dose: 100 mls/hr Insulin Aspart (Novolog Insulin Sliding Scale) 0 units SUBQ ACHS EDNA PRN Reason: Protocol Stop: 03/23/17 11:29 Last Admin: 01/23/17 12:16 Dose: Not Given Ondansetron HCl (Zofran) 4 mg IV Q6H PRN PRN Reason: Nausea / Vomiting Stop: 03/22/17 04:15 Tramadol HCl (Ultram) 50 mg PO Q6HR PRN PRN Reason: GENERALIZED PAIN Stop: 03/22/17 11:12 Vitamin B Complex/Vit C/Folic Acid (Vitamin B Complex W/Vitamin C) 1 tab PO DAILY [facility] Stop: 03/23/17 08:59 Last Admin: 01/23/17 12:01 Dose: 1 tab General: Alert, Oriented x3, Cooperative, No acute distress HEENT: Atraumatic, PERRLA, EOMI, Mucous membr. moist/pink Neck: Supple, +2 carotid pulse wo bruit Cardiovascular: Regular rate, Normal S1, Normal S2 Lungs: Clear to auscultation, Normal air movement Abdomen: Bowel sounds, Soft Extremities: Other (No edema), no Edema Neurological: Normal gait Skin: Other (warm and dry), no Rash Psych/Mental Status: Mental status NL, Mood NL Assessment/Plan - Assessment Assessment: Patient is awake, alert, calm. Patient refer felling better. Patient is not shaking anymore, K is normal - Plan Plan: Patient in ceftriaxone, HD done yesterday. Will continue to monitor.
[2017-01-23] MEDS: cefTRIAXone 1 GM in 0.9% NS 50 ML IV SCH (15:28)
--- NOTE | 2017-01-23 18:22 | General Progress Note ---
Subjective - Review of Systems Service Date: 01/23/17 Subjective: Alert, better Objective - Results Result Diagrams: 01/23/17 06:08 01/23/17 06:08 Recent Labs: Laboratory Last Values WBC 4.6 Th/cmm (4.8-10.8) L 01/23/17 06:08 RBC 3.44 Mil/cmm (4.30-5.70) L 01/23/17 06:08 Hgb 11.4 gm/dL (13.2-17.3) L 01/23/17 06:08 Hct 32.5 % (39.0-49.0) L 01/23/17 06:08 MCV 94.6 fl (80-99) 01/23/17 06:08 MCH 33.0 pg (26.0-30.0) H 01/23/17 06:08 MCHC Differential 34.9 pg (28.0-36.0) 01/23/17 06:08 RDW 14.2 % (11.5-20.0) 01/23/17 06:08 Plt Count 139 Th/cmm (150-400) L 01/23/17 06:08 MPV 10.2 fl 01/23/17 06:08 Neutrophils % 83.3 % (40.0-80.0) H 01/21/17 09:30 Band Neutrophils % 3 % (0-10) 01/23/17 06:08 Lymphocytes % 6.7 % (20.0-50.0) L 01/21/17 09:30 Monocytes % 9.2 % (2.0-10.0) 01/21/17 09:30 Eosinophils % 0.2 % (0.0-5.0) 01/21/17 09:30 Basophils % 0.6 % (0.0-2.0) 01/21/17 09:30 Neutrophils (Manual) 51 % (40-80) 01/23/17 06:08 Lymphocytes 24 % (20-50) 01/23/17 06:08 Monocytes 19 % (2-10) H 01/23/17 06:08 Eosinophils 3 % (0-5) 01/23/17 06:08 Platelet Estimate ADEQUATE (NORMAL) 01/23/17 06:08 Sodium 136 mEq/L (136-145) 01/23/17 06:08 Potassium 4.0 mEq/L (3.5-5.1) D 01/23/17 06:08 Chloride 97 mEq/L (98-107) L 01/23/17 06:08 Carbon Dioxide 31.6 mEq/L (21.0-31.0) H 01/23/17 06:08 Anion Gap 11.4 (7.0-16.0) 01/23/17 06:08 BUN 43 mg/dL (7-25) H 01/23/17 06:08 Creatinine 7.9 mg/dL (0.7-1.3) H* 01/23/17 06:08 Est GFR ( Amer) 9.2 ml/min (>90) 01/23/17 06:08 Est GFR (Non-Af Amer) 7.6 ml/min 01/23/17 06:08 BUN/Creatinine Ratio 5.4 01/23/17 06:08 Glucose 102 mg/dL (70-105) 01/23/17 06:08 POC Glucose 139 MG/DL (70 - 105) H 01/23/17 16:46 Hemoglobin A1c % 4.8 % (4.0-6.0) 01/22/17 05:35 Calcium 8.8 mg/dL (8.6-10.3) 01/23/17 06:08 Total Bilirubin 0.4 mg/dL (0.3-1.0) 01/23/17 06:08 AST 17 U/L (13-39) 01/23/17 06:08 ALT 23 U/L (7-52) 01/23/17 06:08 Alkaline Phosphatase 60 U/L (34-104) 01/23/17 06:08 B-Natriuretic Peptide 1040.0 pg/mL (5.0-100.0) H 01/23/17 06:08 Total Protein 6.2 gm/dL (6.0-8.3) 01/23/17 06:08 Albumin 3.3 gm/dL (4.2-5.5) L 01/23/17 06:08 Globulin 2.9 gm/dL 01/23/17 06:08 Albumin/Globulin Ratio 1.1 (1.0-1.8) 01/23/17 06:08 - Physical Exam Vitals and I&O: Vital Signs Temp 98 F 01/23/17 04:00 Pulse 90 01/23/17 17:49 Resp 18 01/23/17 04:00 BP 116/63 01/23/17 17:49 Pulse Ox 94 01/23/17 04:00 Intake & Output 01/22/17 01/23/17 01/23/17 18:59 06:59 18:59 Intake Total 450 200 Output Total 2000 Balance -1550 200 Weight (lbs) 77.111 kg 81.647 kg Intake: Intake, IV Amount 50 [id number] 1 gm In 50 Sodium Chloride 0.9% 50 ml @ 100 mls/hr IV Q24HR [facility] Rx#:[id number] Oral 400 200 Output: Hemodialysis 2000 Other: # Voids 2 # Bowel Movements 1 Active Medications: Current Medications Acetaminophen (Tylenol) 650 mg PO Q6H PRN PRN Reason: Pain or Fever >101 Stop: 03/22/17 09:03 Last Admin: 01/21/17 23:20 Dose: 650 mg Aspirin (Aspirin Chewable) 81 mg PO DAILY [facility] Stop: 03/23/17 08:59 Last Admin: 01/23/17 12:02 Dose: 81 mg Atorvastatin Calcium (Lipitor) 40 mg PO DAILY [facility] Stop: 03/23/17 08:59 Last Admin: 01/23/17 12:01 Dose: 40 mg Calcium Acetate (Phoslo) 2,668 mg PO TIDWM [facility] Stop: 03/23/17 11:59 Last Admin: 01/23/17 11:59 Dose: 2,668 mg Carvedilol (Coreg) 25 mg PO BID [facility] Stop: 03/23/17 08:59 Last Admin: 01/23/17 17:49 Dose: 25 mg Finasteride (Proscar) 5 mg PO DAILY [facility] PRN Reason: Protocol Stop: 03/23/17 08:59 Last Admin: 01/23/17 12:00 Dose: 5 mg Gabapentin (Neurontin) 300 mg PO DAILY [facility] Stop: 03/23/17 08:59 Last Admin: 01/23/17 16:59 Dose: 300 mg Hydralazine HCl (Apresoline) 50 mg PO TID [facility] Stop: 03/23/17 08:59 Last Admin: 01/23/17 16:57 Dose: Not Given Ceftriaxone Sodium 1 gm/ (Sodium Chloride) 50 mls @ 100 mls/hr IV Q24HR [facility] Stop: 03/23/17 08:59 Last Admin: 01/23/17 15:28 Dose: 100 mls/hr Insulin Aspart (Novolog Insulin Sliding Scale) 0 units SUBQ ACHS [facility] PRN Reason: Protocol Stop: 03/23/17 11:29 Last Admin: 01/23/17 16:59 Dose: Not Given Ondansetron HCl (Zofran) 4 mg IV Q6H PRN PRN Reason: Nausea / Vomiting Stop: 03/22/17 04:15 Tramadol HCl (Ultram) 50 mg PO Q6HR PRN PRN Reason: GENERALIZED PAIN Stop: 03/22/17 11:12 Vitamin B Complex/Vit C/Folic Acid (Vitamin B Complex W/Vitamin C) 1 tab PO DAILY [facility] Stop: 03/23/17 08:59 Last Admin: 01/23/17 12:01 Dose: 1 tab General: Alert, Oriented x3, Cooperative, No acute distress HEENT: Atraumatic, PERRLA, EOMI, Mucous membr. moist/pink Neck: Supple, +2 carotid pulse wo bruit Cardiovascular: Regular rate, Normal S1, Normal S2 Lungs: Clear to auscultation, Normal air movement Abdomen: Bowel sounds, Soft Extremities: Other (No edema), no Edema Neurological: Normal gait Skin: Other (warm and dry), no Rash Psych/Mental Status: Mental status NL, Mood NL Assessment/Plan - Assessment Assessment: Community acquired pneumonia Essential hypertension COPD Type II DM with CPD ESRD on hemodialysis - Plan Plan: Lab - Result Diagrams 01/22/17 05:35 01/22/17 05:35 Current Medications Acetaminophen (Tylenol) 650 mg PO Q6H PRN PRN Reason: Pain or Fever >101 Stop: 03/22/17 09:03 Last Admin: 01/21/17 23:20 Dose: 650 mg Aspirin (Aspirin Chewable) 81 mg PO DAILY [facility] Stop: 03/23/17 08:59 Last Admin: 01/22/17 09:58 Dose: 81 mg Atorvastatin Calcium (Lipitor) 40 mg PO DAILY [facility] Stop: 03/23/17 08:59 Last Admin: 01/22/17 09:56 Dose: 40 mg Calcium Acetate (Phoslo) 2,668 mg PO TIDWM [facility] Stop: 03/23/17 11:59 Carvedilol (Coreg) 25 mg PO BID [facility] Stop: 03/23/17 08:59 Last Admin: 01/22/17 09:57 Dose: 25 mg Finasteride (Proscar) 5 mg PO DAILY [facility] PRN Reason: Protocol Stop: 03/23/17 08:59 Last Admin: 01/22/17 09:56 Dose: 5 mg Gabapentin (Neurontin) 300 mg PO DAILY [facility] Stop: 03/23/17 08:59 Last Admin: 01/22/17 09:57 Dose: 300 mg Hydralazine HCl (Apresoline) 50 mg PO TID [facility] Stop: 03/23/17 08:59 Ceftriaxone Sodium 1 gm/ (Sodium Chloride) 50 mls @ 100 mls/hr IV Q24HR [facility] Stop: 03/23/17 08:59 Last Admin: 01/22/17 09:54 Dose: 100 mls/hr Insulin Aspart (Novolog Insulin Sliding Scale) 0 units SUBQ ACHS [facility] PRN Reason: Protocol Stop: 03/23/17 11:29 Last Admin: 01/22/17 13:25 Dose: 3 units Ondansetron HCl (Zofran) 4 mg IV Q6H PRN PRN Reason: Nausea / Vomiting Stop: 03/22/17 04:15 Tramadol HCl (Ultram) 50 mg PO Q6HR PRN PRN Reason: GENERALIZED PAIN Stop: 03/22/17 11:12 Vitamin B Complex/Vit C/Folic Acid (Vitamin B Complex W/Vitamin C) 1 tab PO DAILY [facility] Stop: 03/23/17 08:59 Last Admin: 01/22/17 09:57 Dose: 1 tab Currently being dialyzed and tolerating it well Lab - Result Diagrams 01/23/17 06:08 01/23/17 06:08 Continue ceftriaxone White count stable at 4.6 Continue Rocephin For hemodialysis in a.m.
[2017-01-24 06:35] LABS: % BASOPHILS 0.3 % (0.0-2.0); % EOSINOPHILS 3.6 % (0.0-5.0); % LYMPHOCYTES 23.8 % (20.0-50.0); % MONOCYTES 13.7 % (2.0-10.0); % NEUTROPHILS 58.6 % (40.0-80.0); HEMATOCRIT 32.6 % (39.0-49.0); HEMOGLOBIN 11.1 gm/dL (13.2-17.3); MEAN CELL VOLUME 95.2 fl (80-99); MEAN CORPUSCULAR HEMOGLOBIN 32.5 pg (26.0-30.0); MEAN CORPUSCULAR HGB CONC 34.1 pg (28.0-36.0); MEAN PLATELET VOLUME 9.7 fl; NEUTROPHILE ABSOLUTE 3.1 Th/cmm (1.8-8.0); PLATELET COUNT 145 Th/cmm (150-400); RED BLOOD COUNT 3.43 Mil/cmm (4.30-5.70); RED CELL DISTRIBUTION WIDTH 13.5 % (11.5-20.0); WHITE BLOOD COUNT 5.2 Th/cmm (4.8-10.8)
[2017-01-24 06:45] LABS: ALB/GLOB RATIO 1.2 (1.0-1.8); ANION GAP 12.9 (7.0-16.0); BILIRUBIN,TOTAL 0.4 mg/dL (0.3-1.0); BUN/CREATININE RATIO 6.1; CALCIUM SERUM 8.7 mg/dL (8.6-10.3); CARBON DIOXIDE 29.4 mEq/L (21.0-31.0); POTASSIUM SERUM 4.3 mEq/L (3.5-5.1)
[2017-01-24 06:56] LABS: CREATININE - SERUM 9.8 mg/dL (0.7-1.3)
--- NOTE | 2017-01-24 08:47 | General Progress Note ---
Subjective - Review of Systems Service Date: 01/24/17 Subjective: I feel better Objective - Results Result Diagrams: 01/24/17 06:11 01/24/17 06:11 Recent Labs: Laboratory Last Values WBC 5.2 Th/cmm (4.8-10.8) 01/24/17 06:11 RBC 3.43 Mil/cmm (4.30-5.70) L 01/24/17 06:11 Hgb 11.1 gm/dL (13.2-17.3) L 01/24/17 06:11 Hct 32.6 % (39.0-49.0) L 01/24/17 06:11 MCV 95.2 fl (80-99) 01/24/17 06:11 MCH 32.5 pg (26.0-30.0) H 01/24/17 06:11 MCHC Differential 34.1 pg (28.0-36.0) 01/24/17 06:11 RDW 13.5 % (11.5-20.0) 01/24/17 06:11 Plt Count 145 Th/cmm (150-400) L 01/24/17 06:11 MPV 9.7 fl 01/24/17 06:11 Neutrophils % 58.6 % (40.0-80.0) 01/24/17 06:11 Band Neutrophils % 3 % (0-10) 01/23/17 06:08 Lymphocytes % 23.8 % (20.0-50.0) 01/24/17 06:11 Monocytes % 13.7 % (2.0-10.0) H 01/24/17 06:11 Eosinophils % 3.6 % (0.0-5.0) 01/24/17 06:11 Basophils % 0.3 % (0.0-2.0) 01/24/17 06:11 Neutrophils (Manual) 51 % (40-80) 01/23/17 06:08 Lymphocytes 24 % (20-50) 01/23/17 06:08 Monocytes 19 % (2-10) H 01/23/17 06:08 Eosinophils 3 % (0-5) 01/23/17 06:08 Platelet Estimate ADEQUATE (NORMAL) 01/23/17 06:08 Sodium 134 mEq/L (136-145) L 01/24/17 06:11 Potassium 4.3 mEq/L (3.5-5.1) 01/24/17 06:11 Chloride 96 mEq/L (98-107) L 01/24/17 06:11 Carbon Dioxide 29.4 mEq/L (21.0-31.0) 01/24/17 06:11 Anion Gap 12.9 (7.0-16.0) 01/24/17 06:11 BUN 60 mg/dL (7-25) H 01/24/17 06:11 Creatinine 9.8 mg/dL (0.7-1.3) H* 01/24/17 06:11 Est GFR ( Amer) 7.2 ml/min (>90) 01/24/17 06:11 Est GFR (Non-Af Amer) 5.9 ml/min 01/24/17 06:11 BUN/Creatinine Ratio 6.1 01/24/17 06:11 Glucose 117 mg/dL (70-105) H 01/24/17 06:11 POC Glucose 137 MG/DL (70 - 105) H 01/24/17 06:17 Hemoglobin A1c % 4.8 % (4.0-6.0) 01/22/17 05:35 Calcium 8.7 mg/dL (8.6-10.3) 01/24/17 06:11 Total Bilirubin 0.4 mg/dL (0.3-1.0) 01/24/17 06:11 AST 17 U/L (13-39) 01/24/17 06:11 ALT 22 U/L (7-52) 01/24/17 06:11 Alkaline Phosphatase 66 U/L (34-104) 01/24/17 06:11 B-Natriuretic Peptide 1040.0 pg/mL (5.0-100.0) H 01/23/17 06:08 Total Protein 6.2 gm/dL (6.0-8.3) 01/24/17 06:11 Albumin 3.4 gm/dL (4.2-5.5) L 01/24/17 06:11 Globulin 2.8 gm/dL 01/24/17 06:11 Albumin/Globulin Ratio 1.2 (1.0-1.8) 01/24/17 06:11 - Physical Exam Vitals and I&O: Vital Signs Temp 98.0 F 01/24/17 04:00 Pulse 88 01/24/17 04:00 Resp 18 01/24/17 04:00 BP 122/73 01/24/17 04:00 Pulse Ox 98 01/24/17 04:00 Intake & Output 01/23/17 01/24/17 01/24/17 18:59 06:59 18:59 Intake Total 200 Balance 200 Weight (lbs) 81.647 kg 82.327 kg Intake: Oral 200 Other: Stool Characteristics Soft Active Medications: Current Medications Acetaminophen (Tylenol) 650 mg PO Q6H PRN PRN Reason: Pain or Fever >101 Stop: 03/22/17 09:03 Last Admin: 01/21/17 23:20 Dose: 650 mg Aspirin (Aspirin Chewable) 81 mg PO DAILY [facility]END[facility] TO [facility] Stop: 03/23/17 08:59 Last Admin: 01/23/17 12:02 Dose: 81 mg Atorvastatin Calcium (Lipitor) 40 mg PO DAILY [facility] Stop: 03/23/17 08:59 Last Admin: 01/23/17 12:01 Dose: 40 mg Calcium Acetate (Phoslo) 2,668 mg PO TIDWM [facility] Stop: 03/23/17 11:59 Last Admin: 01/23/17 11:59 Dose: 2,668 mg Carvedilol (Coreg) 25 mg PO BID PENDING S[facility] TO [facility] Stop: 03/23/17 08:59 Last Admin: 01/23/17 17:49 Dose: 25 mg Finasteride (Proscar) 5 mg PO DAILY [facility]END[facility] TO [facility] PRN Reason: Protocol Stop: 03/23/17 08:59 Last Admin: 01/23/17 12:00 Dose: 5 mg Gabapentin (Neurontin) 300 mg PO DAILY [facility] Stop: 03/23/17 08:59 Last Admin: 01/23/17 16:59 Dose: 300 mg Hydralazine HCl (Apresoline) 50 mg PO TID [facility] Stop: 03/23/17 08:59 Last Admin: 01/23/17 21:05 Dose: 50 mg Ceftriaxone Sodium 1 gm/ (Sodium Chloride) 50 mls @ 100 mls/hr IV Q24HR [facility] Stop: 03/23/17 08:59 Last Admin: 01/23/17 15:28 Dose: 100 mls/hr Insulin Aspart (Novolog Insulin Sliding Scale) 0 units SUBQ ACHS [facility] PRN Reason: Protocol Stop: 03/23/17 11:29 Last Admin: 01/23/17 21:05 Dose: Not Given Ondansetron HCl (Zofran) 4 mg IV Q6H PRN PRN Reason: Nausea / Vomiting Stop: 03/22/17 04:15 Tramadol HCl (Ultram) 50 mg PO Q6HR PRN PRN Reason: GENERALIZED PAIN Stop: 03/22/17 11:12 Vitamin B Complex/Vit C/Folic Acid (Vitamin B Complex W/Vitamin C) 1 tab PO DAILY [facility] Stop: 03/23/17 08:59 Last Admin: 01/23/17 12:01 Dose: 1 tab General: Alert, Oriented x3, Cooperative, No acute distress HEENT: Atraumatic, PERRLA, EOMI, Mucous membr. moist/pink Neck: Supple, +2 carotid pulse wo bruit Cardiovascular: Regular rate, Normal S1, Normal S2 Lungs: Clear to auscultation, Normal air movement Abdomen: Bowel sounds, Soft Extremities: Other (No edema), no Edema Neurological: Normal gait Skin: Other (warm and dry), no Rash Psych/Mental Status: Mental status NL, Mood NL Assessment/Plan - Assessment Assessment: Patient is awake, alert, calm. Patient refer felling better. - Plan Plan: Patient in ceftriaxone, HD will be done today. Patient will be discharge after HD.
[2017-01-24] MEDS: INSULIN ASPART SLIDING SCALE 100 UNITS/ML UNIT SUBQ SCH ×2 (09:05→12:16)
[2017-01-24] MEDS: Vitamin B Complex w/Vitamin C Tab PO SCH (09:12)
[2017-01-24] MEDS: Aspirin 81mg Chewable Tab PO SCH (09:12)
[2017-01-24] MEDS: cefTRIAXone 1 GM in 0.9% NS 50 ML IV SCH (09:36)
--- NOTE | 2017-01-24 14:31 | General Progress Note ---
Subjective - Review of Systems Service Date: 01/24/17 Subjective: Alert, better Objective - Results Result Diagrams: 01/24/17 06:11 01/24/17 06:11 Recent Labs: Laboratory Last Values WBC 5.2 Th/cmm (4.8-10.8) 01/24/17 06:11 RBC 3.43 Mil/cmm (4.30-5.70) L 01/24/17 06:11 Hgb 11.1 gm/dL (13.2-17.3) L 01/24/17 06:11 Hct 32.6 % (39.0-49.0) L 01/24/17 06:11 MCV 95.2 fl (80-99) 01/24/17 06:11 MCH 32.5 pg (26.0-30.0) H 01/24/17 06:11 MCHC Differential 34.1 pg (28.0-36.0) 01/24/17 06:11 RDW 13.5 % (11.5-20.0) 01/24/17 06:11 Plt Count 145 Th/cmm (150-400) L 01/24/17 06:11 MPV 9.7 fl 01/24/17 06:11 Neutrophils % 58.6 % (40.0-80.0) 01/24/17 06:11 Band Neutrophils % 3 % (0-10) 01/23/17 06:08 Lymphocytes % 23.8 % (20.0-50.0) 01/24/17 06:11 Monocytes % 13.7 % (2.0-10.0) H 01/24/17 06:11 Eosinophils % 3.6 % (0.0-5.0) 01/24/17 06:11 Basophils % 0.3 % (0.0-2.0) 01/24/17 06:11 Neutrophils (Manual) 51 % (40-80) 01/23/17 06:08 Lymphocytes 24 % (20-50) 01/23/17 06:08 Monocytes 19 % (2-10) H 01/23/17 06:08 Eosinophils 3 % (0-5) 01/23/17 06:08 Platelet Estimate ADEQUATE (NORMAL) 01/23/17 06:08 Sodium 134 mEq/L (136-145) L 01/24/17 06:11 Potassium 4.3 mEq/L (3.5-5.1) 01/24/17 06:11 Chloride 96 mEq/L (98-107) L 01/24/17 06:11 Carbon Dioxide 29.4 mEq/L (21.0-31.0) 01/24/17 06:11 Anion Gap 12.9 (7.0-16.0) 01/24/17 06:11 BUN 60 mg/dL (7-25) H 01/24/17 06:11 Creatinine 9.8 mg/dL (0.7-1.3) H* 01/24/17 06:11 Est GFR ( Amer) 7.2 ml/min (>90) 01/24/17 06:11 Est GFR (Non-Af Amer) 5.9 ml/min 01/24/17 06:11 BUN/Creatinine Ratio 6.1 01/24/17 06:11 Glucose 117 mg/dL (70-105) H 01/24/17 06:11 POC Glucose 157 MG/DL (70 - 105) H 01/24/17 11:27 Hemoglobin A1c % 4.8 % (4.0-6.0) 01/22/17 05:35 Calcium 8.7 mg/dL (8.6-10.3) 01/24/17 06:11 Total Bilirubin 0.4 mg/dL (0.3-1.0) 01/24/17 06:11 AST 17 U/L (13-39) 01/24/17 06:11 ALT 22 U/L (7-52) 01/24/17 06:11 Alkaline Phosphatase 66 U/L (34-104) 01/24/17 06:11 B-Natriuretic Peptide 1040.0 pg/mL (5.0-100.0) H 01/23/17 06:08 Total Protein 6.2 gm/dL (6.0-8.3) 01/24/17 06:11 Albumin 3.4 gm/dL (4.2-5.5) L 01/24/17 06:11 Globulin 2.8 gm/dL 01/24/17 06:11 Albumin/Globulin Ratio 1.2 (1.0-1.8) 01/24/17 06:11 - Physical Exam Vitals and I&O: Vital Signs Temp 98.1 F 01/24/17 12:00 Pulse 93 01/24/17 12:00 Resp 18 01/24/17 12:00 BP 155/85 01/24/17 12:00 Pulse Ox 97 01/24/17 12:00 Intake & Output 01/23/17 01/24/17 01/24/17 18:59 06:59 18:59 Intake Total 50 200 Balance 50 200 Weight (lbs) 81.647 kg 82.327 kg Intake: Intake, IV Amount 50 [id number] 1 gm In 50 Sodium Chloride 0.9% 50 ml @ 100 mls/hr IV Q24HR [facility] Rx#:[id number] Oral 200 Other: Stool Characteristics Soft Active Medications: Current Medications Acetaminophen (Tylenol) 650 mg PO Q6H PRN PRN Reason: Pain or Fever >101 Stop: 03/22/17 09:03 Last Admin: 01/21/17 23:20 Dose: 650 mg Aspirin (Aspirin Chewable) 81 mg PO DAILY [facility] Stop: 03/23/17 08:59 Last Admin: 01/24/17 09:12 Dose: 81 mg Atorvastatin Calcium (Lipitor) 40 mg PO DAILY [facility] Stop: 03/23/17 08:59 Last Admin: 01/24/17 09:11 Dose: 40 mg Calcium Acetate (Phoslo) 2,668 mg PO TIDWM [facility] Stop: 03/23/17 11:59 Last Admin: 01/24/17 12:15 Dose: 2,668 mg Carvedilol (Coreg) 25 mg PO BID [facility] Stop: 03/23/17 08:59 Last Admin: 01/24/17 12:20 Dose: Not Given Finasteride (Proscar) 5 mg PO DAILY [facility] PRN Reason: Protocol Stop: 03/23/17 08:59 Last Admin: 01/24/17 09:12 Dose: 5 mg Gabapentin (Neurontin) 300 mg PO DAILY [facility] Stop: 03/23/17 08:59 Last Admin: 01/24/17 09:12 Dose: 300 mg Hydralazine HCl (Apresoline) 50 mg PO TID [facility] Stop: 03/23/17 08:59 Last Admin: 01/24/17 12:20 Dose: Not Given Ceftriaxone Sodium 1 gm/ (Sodium Chloride) 50 mls @ 100 mls/hr IV Q24HR [facility] Stop: 03/23/17 08:59 Last Admin: 01/24/17 09:36 Dose: 100 mls/hr Insulin Aspart (Novolog Insulin Sliding Scale) 0 units SUBQ ACHS [facility] PRN Reason: Protocol Stop: 03/23/17 11:29 Last Admin: 01/24/17 12:16 Dose: 3 units Miscellaneous (Clinical Monitoring) 1 ea MC DAILY PRN PRN Reason: RENAL Stop: 03/25/17 12:33 Ondansetron HCl (Zofran) 4 mg IV Q6H PRN PRN Reason: Nausea / Vomiting Stop: 03/22/17 04:15 Tramadol HCl (Ultram) 50 mg PO Q6HR PRN PRN Reason: GENERALIZED PAIN Stop: 03/22/17 11:12 Vitamin B Complex/Vit C/Folic Acid (Vitamin B Complex W/Vitamin C) 1 tab PO DAILY [facility] Stop: 03/23/17 08:59 Last Admin: 01/24/17 09:12 Dose: 1 tab General: Alert, Oriented x3, Cooperative, No acute distress HEENT: Atraumatic, PERRLA, EOMI, Mucous membr. moist/pink Neck: Supple, +2 carotid pulse wo bruit Cardiovascular: Regular rate, Normal S1, Normal S2 Lungs: Clear to auscultation, Normal air movement Abdomen: Bowel sounds, Soft Extremities: Other (No edema), no Edema Neurological: Normal gait Skin: Other (warm and dry), no Rash Psych/Mental Status: Mental status NL, Mood NL Assessment/Plan - Assessment Assessment: Community acquired pneumonia Essential hypertension COPD Type II DM with CPD ESRD on hemodialysis - Plan Plan: Lab - Result Diagrams 01/22/17 05:35 01/22/17 05:35 Current Medications Acetaminophen (Tylenol) 650 mg PO Q6H PRN PRN Reason: Pain or Fever >101 Stop: 03/22/17 09:03 Last Admin: 01/21/17 23:20 Dose: 650 mg Aspirin (Aspirin Chewable) 81 mg PO DAILY [facility] Stop: 03/23/17 08:59 Last Admin: 01/22/17 09:58 Dose: 81 mg Atorvastatin Calcium (Lipitor) 40 mg PO DAILY [facility] Stop: 03/23/17 08:59 Last Admin: 01/22/17 09:56 Dose: 40 mg Calcium Acetate (Phoslo) 2,668 mg PO TIDWM [facility] Stop: 03/23/17 11:59 Carvedilol (Coreg) 25 mg PO BID [facility] Stop: 03/23/17 08:59 Last Admin: 01/22/17 09:57 Dose: 25 mg Finasteride (Proscar) 5 mg PO DAILY [facility] PRN Reason: Protocol Stop: 03/23/17 08:59 Last Admin: 01/22/17 09:56 Dose: 5 mg Gabapentin (Neurontin) 300 mg PO DAILY [facility] Stop: 03/23/17 08:59 Last Admin: 01/22/17 09:57 Dose: 300 mg Hydralazine HCl (Apresoline) 50 mg PO TID [facility] Stop: 03/23/17 08:59 Ceftriaxone Sodium 1 gm/ (Sodium Chloride) 50 mls @ 100 mls/hr IV Q24HR [facility] Stop: 03/23/17 08:59 Last Admin: 01/22/17 09:54 Dose: 100 mls/hr Insulin Aspart (Novolog Insulin Sliding Scale) 0 units SUBQ ACHS [facility] PRN Reason: Protocol Stop: 03/23/17 11:29 Last Admin: 01/22/17 13:25 Dose: 3 units Ondansetron HCl (Zofran) 4 mg IV Q6H PRN PRN Reason: Nausea / Vomiting Stop: 03/22/17 04:15 Tramadol HCl (Ultram) 50 mg PO Q6HR PRN PRN Reason: GENERALIZED PAIN Stop: 03/22/17 11:12 Vitamin B Complex/Vit C/Folic Acid (Vitamin B Complex W/Vitamin C) 1 tab PO DAILY [facility] Stop: 03/23/17 08:59 Last Admin: 01/22/17 09:57 Dose: 1 tab Lab - Result Diagrams 01/23/17 06:08 Lab - Result Diagrams 01/24/17 06:11 01/24/17 06:11 White count stable at 5.2 Continue Rocephin Currently being dialyzed and tolerating it well Possible discharge postdialysis
--- NOTE | 2017-01-24 16:52 | Cardiology ---
Cardiology Report - Cardiology Cardiology: Date of Service: 01/23/[address] Booth M-MODE ECHOCARDIOLGRAM: Mitral valve normal left ventricle hypertrophy ejection fraction 60% left atrium enlarged 4.2 cm aortic root normal aortic leaflets normal CONCLUSION: Hypertrophy left ventricle ejection fraction 60% left atrium enlarged 2D ECHO: Long axis mitral wall normal hypertrophy left ventricle ejection fraction 60% left atrium enlarged aortic root normal aortic leaflets normal Short axis mitral valve normal aortic wall is normal Apical 4 chamber left ventricle hypertrophy ejection fraction 60% left Atrium normal right ventricle normal right atrium normal CONCLUSION: Hypertrophy left ventricle ejection fraction 60% left Atrium enlarged DOPPLER: Prominent A wave mild mitral regurgitation and trace tricuspid regurgitation trace aortic regurgitation trace pulmonary regurgitation and right ventricular systolic pressure 26 mmHg CONCLUSION: Hypertrophy left ventricle ejection fraction 60% Left atrium enlarged Mild mitral regurgitation Trace tricuspid regurgitation Trace aortic regurgitation Trace pulmonary regurgitation
== END 2017-01-24 17:20 | disposition home or self-care (01) | DRG 193 ==
LOC: TELE 03:10
PROVIDERS: ADMIT General Practice; ATTEND General Practice
PROC: 5A1D60Z (ICD-10-PCS; principal; 2017-01-22)
DX: J18.9 Pneumonia, unspecified organism (principal); N18.6 End stage renal disease; I12.0 Hypertensive chronic kidney disease with stage 5 chronic kidney disease or end stage renal disease; E11.22 Type 2 diabetes mellitus with diabetic chronic kidney disease; F41.9 Anxiety disorder, unspecified; E87.5 Hyperkalemia; I25.10 Atherosclerotic heart disease of native coronary artery without angina pectoris; N40.0 Benign prostatic hyperplasia without lower urinary tract symptoms; D64.9 Anemia, unspecified; J44.9 Chronic obstructive pulmonary disease, unspecified; Z99.2 Dependence on renal dialysis; Z82.49 Family history of ischemic heart disease and other diseases of the circulatory system; Z79.82 Long term (current) use of aspirin; Z79.84 Long term (current) use of oral hypoglycemic drugs
CPT/HCPCS: 36415-UA; 71010-TC; 80053-TC; 82948-90; 83036-90; 83880-TC; 85007-TC; 85025-TC; 85027-TC; 90937; 93005; J0696; J1815; J3370; J7030; Z7610